=== PATIENT | female | born 1965 | race Caucasian/White ===

== ENCOUNTER 2020-05-16 15:50 | Emergency (ER) | payer OTHER ==
[~2020-05-16] VITALS: Ht 170.2 cm; Wt 74.8 kg
[2020-05-16] MEDS ORDERED: SUMATRIPTAN-NA1 EACH (16:02)
== END 2020-05-16 16:41 | disposition home or self-care (01) ==
LOC: ER 15:50
DX: G43.809 Other migraine, not intractable, without status migrainosus (principal)